=== PATIENT | female | born 1965 | race African-American/Black ===

== ENCOUNTER → 2016-06-11 | Outpatient (CLI) | payer SELFPAY ==
[~2016-06-11] MED LIST: AMITRIPTYLINE H50 MG PO; AMITRYPTYLINE PO; BUTALB-ACETAMI1 EACH PO; CELEXA20 MG PO; CITALOPRAM HBR40 MG PO; GINKGO BILOBA120 M1 PO; IMITREX25 MG PO; NEXIUM PO; PATIENT'S PHARMACY; PRILOSEC PO; VITAMIN D31000 UNIT PO; WELLBUTRIN SR150 M1 PO; WELLBUTRIN SR150 MG PO
== END | disposition home or self-care (01) ==
LOC: CBAR 15:10
DX: A04.8 Other specified bacterial intestinal infections (principal)
CPT/HCPCS: 36415; 86677

== ENCOUNTER → 2016-07-30 | Day surgery (SDC) | payer SELFPAY ==
--- NOTE | ~2016-07-30 | OR ---
Unit #: [id number] #: [id number] Patient: CHRISTIANO WEINBERG [id number] [address] [place], [place] [address] [id number] O MR#: [id number] NAME: CHRISTIANO WEINBERG ROOM: Date of Procedure: 07/30/2016 Admission Date: 07/30/2016 Surgeon: Dontrell Celaya III, M.D. : 1965 Attending Physician: Dontrell Celaya III, M.D. OPERATIVE REPORT PREOPERATIVE DIAGNOSIS Obesity. POSTOPERATIVE DIAGNOSIS Obesity. PROCEDURES PERFORMED Esophagogastroduodenoscopy and placement of intragastric Orbera balloon. ANESTHESIA MAC. SPECIMENS None. COMPLICATIONS None apparent. FINDINGS Small hiatal hernia. INDICATIONS FOR PROCEDURE This is a 51-year-old lady, who has been evaluated for intragastric Orbera balloon placement. She understands risks and benefits of the procedure, and wishes to proceed. DESCRIPTION OF PROCEDURE After consent was obtained, the patient was brought to the endoscopy suite and placed in the left lateral decubitus position. We titrated the above sedation and I passed an EGD scope easily into the esophagus under direct visualization. She had normal peristalsis. No evidence of any erosions or esophagitis and there was only a small hiatal hernia present. I evaluated the rest of the stomach, which showed no ulcerations or retained food or gastritis. The pylorus was patent and the first and second portions of the duodenum appeared normal. I then retroflexed the scope within the cardia and again just saw a small hiatal hernia. The scope was then straightened and withdrawn. I then lubricated the Orbera intragastric balloon. It was easily passed into the oropharynx and into the esophagus. I then followed it toward the stomach with the scope behind it. Once the balloon was placed within the upper portion of the stomach under direct visualization, I insufflated the balloon with 640 mL Unit #: [id number] #: [id number] Patient: CHRISTIANO WEINBERG of saline. I then detached the catheter from the balloon itself and the balloon was in good position. I suctioned out all the excess air from the stomach. The scope was then carefully withdrawn along with the catheter tubing. It should be noted that the serial number for the balloon was [id number]. The patient tolerated the procedure without any problems and returned to the recovery room in stable condition. Dictated by... Dontrell Celaya III, M.D. VCL/rhoda TD: 07/31/2016 03:04 JOB #: [id number] OPERATIVE REPORT Page 1 of 1 X Dontrell Celaya III, MD PROCEDURE OPERATIVE NOTE
== END | disposition home or self-care (01) ==
LOC: CSUR 08:57 → COPS 11:00
DX: E66.9 Obesity, unspecified (principal); K44.9 Diaphragmatic hernia without obstruction or gangrene; K21.9 Gastro-esophageal reflux disease without esophagitis; F32.9 Major depressive disorder, single episode, unspecified; I10 Essential (primary) hypertension; G43.909 Migraine, unspecified, not intractable, without status migrainosus; G47.30 Sleep apnea, unspecified; Z68.33 Body mass index [BMI] 33.0-33.9, adult; Z88.6 Allergy status to analgesic agent; Z90.710 Acquired absence of both cervix and uterus; Z90.49 Acquired absence of other specified parts of digestive tract; Z98.890 Other specified postprocedural states
CPT/HCPCS: J2250

== ENCOUNTER 2016-09-24 08:42 | Observation (INO) | payer OTHER ==
[~2016-09-24] VITALS: Ht 154.9 cm; Wt 69.4 kg
--- NOTE | ~2016-09-24 | CR7 ---
[facility] A Service of [facility] & [facility] RADIOLOGY TEXT RESULTS PATIENT: CHRISTIANO WEINBERG LOCATION: C2A 229-01 : [birth year] UNIT #: [id number] AGE: [address]: Dontrell Celaya III, MD SEX: F ORDER DR: [id number] [facility] [address] [facility]. [place], [place] [address] [id number] I MR#: [id number] Acc #: [id number] NAME: CHRISTIANO WEINBERG : 1965 SEX: F STUDY DATE/TIME: 09/24/2016 15:00 UNIT: [facility] ROOM: 229 STUDY DESCRIPTION: CR Abdomen Single AP View Attending Physician: Dontrell Celaya III, M.D. Ordering Physician: [facility] MEDICAL IMAGING REPORT This report is preliminary unless electronic signature is present EXAM Portable abdomen HISTORY NG tube placement and abdomen pain today. FINDINGS Portable radiograph of the abdomen, excluding the right lateral margin the abdomen, demonstrates NG tube tip in the right upper quadrant at the level of the distal stomach in the gastric antrum or duodenal bulb, 27 cm beyond the EG junction. The visualized bowel gas pattern is normal. Surgical clips in the right upper quadrant. Dictated by... Elijah Hope M.D. THIS IS AN ELECTRONICALLY VERIFIED REPORT Elijah Hope M.D. at 09/24/2016 11:46 PM DFL/pcl TD: 09/24/2016 20:53 JOB #: [id number] MEDICAL IMAGING REPORT Page 1 of 1 COPY
--- NOTE | ~2016-09-24 | CR2 ---
[facility] A Service of [facility] & [facility] RADIOLOGY TEXT RESULTS PATIENT: CHRISTIANO WEINBERG LOCATION: [facility] 229-01 : [birth year] UNIT #: [id number] AGE: [address]: Dontrell Celaya III, MD SEX: F ORDER DR: [id number] [facility] [address] [facility] [place], [place] [address] [id number] E MR#: [id number] Acc #: [id number] NAME: CHRISTIANO WEINBERG : 1965 SEX: F STUDY DATE/TIME: 09/24/2016 9:46 UNIT: [facility] ROOM: STUDY DESCRIPTION: CR Abdomen Acute Series Attending Physician: Dee Ann A.P.R.N. Ordering Physician: Ed Doc Jr Ding Primary Care Physician: No Primary Care Physician MEDICAL IMAGING REPORT This report is preliminary unless electronic signature is present EXAM Acute abdomen series, 3 views, 09/24/2016. HISTORY Nausea, vomiting and generalized abdominal pain for 1 week. FINDINGS Single frontal view of the chest taken at the time of the abdominal examination is within normal limits. AP, supine, and upright examination of the abdomen shows a normal gas and fecal pattern distribution throughout large and small bowel without distended loops in either area. There is no indication of extraluminal air, unusual visceromegaly, or soft tissue density mass. The renal definitions are fairly well demarcated and normal in shape and size. No abnormal intra-abdominal calcifications are present. IMPRESSION Normal acute abdomen series. Dictated by... Roland Johnston M.D. THIS IS AN ELECTRONICALLY VERIFIED REPORT Roland Johnston M.D. at 09/25/2016 7:27 AM IVANA/jazzy TD: 09/24/2016 13:27 JOB #: [id number] MEDICAL IMAGING REPORT Page 1 of 1 COPY
--- NOTE | ~2016-09-24 | CR7 ---
[facility] A Service of [facility] & [facility] RADIOLOGY TEXT RESULTS PATIENT: CHRISTIANO WEINBERG LOCATION: C2A 229-01 : [birth year] UNIT #: [id number] AGE: [address]: Dontrell Celaya III, MD SEX: F ORDER DR: [id number] [id number] [place], [place] [address] [id number] I MR#: [id number] Acc #: [id number] NAME: CHRISTIANO WEINBERG : 1965 SEX: F STUDY DATE/TIME: 09/25/2016 7:16 UNIT: [facility] ROOM: 229 STUDY DESCRIPTION: CR Abdomen Single AP View Attending Physician: Dontrell Celaya III, M.D. Ordering Physician: Dontrell Celaya III, M.D. Primary Care Physician: Primary Care Physician No MEDICAL IMAGING REPORT This report is preliminary unless electronic signature is present EXAM Single view abdomen INDICATIONS Recent gastric surgery. Gastric balloon placement. FINDINGS AP radiographs of the abdomen without comparison. There is a density projecting over the stomach consistent with the gastric alignment. Enteric tube has been removed. Bowel gas pattern is nonobstructive. There has been prior cholecystectomy. No acute osseous abnormalities. IMPRESSION Density projecting over the stomach consistent with a gastric balloon. Dictated by... Paul Leong M.D. THIS IS AN ELECTRONICALLY VERIFIED REPORT Paul Leong M.D. at 09/25/2016 2:54 PM ROCKY/cassandra TD: 09/25/2016 09:04 JOB #: [id number] MEDICAL IMAGING REPORT Page 1 of 1 COPY
[~2016-09-24 08:42] MED LIST changes: -AMITRIPTYLINE H50 MG PO; -BUTALB-ACETAMI1 EACH PO; -CITALOPRAM HBR40 MG PO; -IMITREX25 MG PO; -PATIENT'S PHARMACY; -PRILOSEC PO; -WELLBUTRIN SR150 M1 PO
[2016-09-24 09:49] LABS: BASOPHIL# 0.1 X10e3 (0-0.3); EOSINOPHIL# 0.1 X10e3 (0-0.7); EOSINOPHIL% 0.9 % (0.0-7.0); HEMATOCRIT 40.9 % (35.0-45.0); HEMOGLOBIN 13.9 gm/dL (12.0-16.0); LYMPHOCYTE# 2.5 X10e3 (1.0-3.5); LYMPHOCYTE% 33.5 % (17.0-45.0); MEAN CELL VOLUME 85.1 FL (83-96); MEAN CORPUSCULAR HEMOGLOBIN 28.9 PG (28-34); MEAN CORPUSCULAR HGB CONC 33.9 g/dL (30-36); MEAN PLATELET VOLUME 8.4 FL (6.5-11.5); MONOCYTE# 0.8 X10e3 (0-1.0); NEUTROPHIL# 3.9 X10e3 (1.5-7.1); NEUTROPHIL% 53.6 % (40-75); PLATELET COUNT 306 X10e3 (140-420); RED BLOOD COUNT 4.81 X10e (3.90-5.30); RED CELL DISTRIBUTION WIDTH 15.7 % (11.0-15.5); WHITE BLOOD COUNT 7.3 X10e3 (4.0-10.5)
[2016-09-24 09:50] LABS: DIFF IND NO
[2016-09-24 10:22] LABS: ALBUMIN SERUM 4.9 g/dL (3.5-5.0); BILIRUBIN, DIRECT 0.1 mg/dL (0.0-0.2); BILIRUBIN,INDIRECT 1.1 mg/dL (0.0-0.9); BILIRUBIN,TOTAL 1.2 mg/dL (0.2-2.0); BUN/CREATININE RATIO 17.5; CALCIUM SERUM 10.3 mg/dL (8.4-10.2); CREATININE SERUM 1.2 mg/dL (0.6-1.4); GLOM FILT RATE Estimated 59.8 mL/min (>60); PROTEIN TOTAL SERUM 8.8 g/dL (6.0-8.3)
[2016-09-24 10:24] LABS: POTASSIUM 2.8 mmol/L (3.5-5.1)
[2016-09-24 11:26] LABS: URINE SOURCE CLEAN CATCH
[2016-09-24 11:38] LABS: URINE APPEARANCE CLOUDY; URINE BILIRUBIN NEG (NEG); URINE BLOOD NEG (NEG); URINE COLOR YELLOW; URINE GLUCOSE NEG (NEG); URINE KETONE 3+ (NEG); URINE LEUKOCYTE ESTERASE TRACE (NEG); URINE NITRATE NEG (NEG); URINE PROTEIN TRACE (NEG); URINE SPECIFIC GRAVITY 1.025 (1.003-1.035)
[2016-09-24 11:42] LABS: CULTURE INDICATED? YES; URINE BACTERIA AUWI 4+ (NEGATIVE); URINE SQUAMOUS EPITHELIAL CELL MOD /[HPF]
[2016-09-24 12:09] LABS: URBCS1 AUWI 0-2 /[HPF] (0-2); URINE GRANULAR CAST 0-2 /[HPF]
[2016-09-24 12:10] LABS: URINE MUCUS PRESENT
[2016-09-24] MEDS ORDERED: AMITRIPTYLINE H50 MG PO (15:09)
[2016-09-24] MEDS ORDERED: BUTALB-ACETAMI1 EACH PO (15:09)
[2016-09-24] MEDS ORDERED: CITALOPRAM HBR40 MG PO (15:09)
[2016-09-24] MEDS ORDERED: PRILOSEC PO (15:09)
[2016-09-24] MEDS ORDERED: PATIENT'S PHARMACY (15:09)
[2016-09-24] MEDS ORDERED: IMITREX25 MG PO (15:10)
[2016-09-24] MEDS ORDERED: WELLBUTRIN SR150 M1 PO (15:10)
[2016-09-25 06:14] LABS: CALCIUM SERUM 8.7 mg/dL (8.4-10.2); CREATININE SERUM 0.8 mg/dL (0.6-1.4); GLOM FILT RATE Estimated 97.6 mL/min (>60)
== END 2016-09-25 10:33 | disposition home or self-care (01) | DRG 392 ==
LOC: CED 08:42 → CEDOF 14:45 → CED 15:11 → CEDOF 16:45 → C2A 17:17 → CEDOF 17:17 → C2A 09-25 10:33
PROVIDERS: Nurse Practitioner; Surgery
DX: R10.11 Right upper quadrant pain (principal); R11.2 Nausea with vomiting, unspecified; E87.6 Hypokalemia; Z79.899 Other long term (current) drug therapy; Z90.49 Acquired absence of other specified parts of digestive tract; Z90.710 Acquired absence of both cervix and uterus; Z98.890 Other specified postprocedural states
CPT/HCPCS: 36415; 74000; 74022; 80048; 80076; 81003; 83690; 85025; 87086; 96361; 96374; 96375; 96376; 99285; C9113; G0378; J2270; J2405

== ENCOUNTER → 2016-10-30 | Day surgery (SDC) | payer SELFPAY ==
[~2016-10-30] MED LIST changes: +AMITRIPTYLINE H50 MG PO; +BUTALB-ACETAMI1 EACH PO; +CITALOPRAM HBR40 MG PO; +IMITREX25 MG PO; +PATIENT'S PHARMACY; +PRILOSEC PO; +WELLBUTRIN SR150 M1 PO
--- NOTE | ~2016-10-30 | OR ---
Unit #: [id number] #: [id number] Patient: CHRISTIANO WEINBERG [id number] [address] [address] [id number] O MR#: [id number] NAME: CHRISTIANO WEINBERG ROOM: Date of Procedure: 10/30/2016 Admission Date: 10/30/2016 Surgeon: Dontrell Celaya III, M.D. : 1965 Attending Physician: Dontrell Celaya III, M.D. Primary Care Physician: Primary Care Physician No OPERATIVE REPORT PREOPERATIVE DIAGNOSES History of gastric balloon, history of obesity, and nausea and vomiting. POSTOPERATIVE DIAGNOSES History of gastric balloon, history of obesity, and nausea and vomiting. PROCEDURE PERFORMED Esophagogastroduodenoscopy with gastric balloon removal. ANESTHESIA General. SPECIMENS None. COMPLICATIONS None apparent. ESTIMATED BLOOD LOSS Minimal. INDICATIONS FOR PROCEDURE This is a 51-year-old lady, who has done extremely well after gastric balloon placement in terms of weight loss. However, she has had some pretty significant side effects of nausea, vomiting, and abdominal discomfort. She is here today for gastric balloon removal. DESCRIPTION OF PROCEDURE After consent was obtained, the patient was brought to the operating room and placed in the supine position. General anesthetic was administered. She was then placed in the left lateral decubitus position. I passed an EGD scope easily into the esophagus under direct visualization. The esophagus appeared normal. There was a little bit retained food in the stomach. The gastric balloon itself appeared normal. I was able to navigate the scope past the balloon and the pylorus was patent and the first and second portions of the duodenum appeared normal. I did not see any ulcers. It should be noted the balloon really did not appear to be out of position. It was maybe slightly lower than normal. It certainly was not wedged down in the antrum. Next, I pierced the balloon with a catheter needle. I removed the needle and suctioned out 640 mL from the balloon itself. Once the balloon was fully deflated, I used the grasper to securely grab hold of the balloon itself and it was retrieved through Unit #: [id number] #: [id number] Patient: CHRISTIANO WEINBERG the oropharynx after partially deflating the endotracheal tube balloon. This came out without any difficulty at all. She tolerated the procedure without any problems and returned to the recovery room in stable condition. Dictated by... Dontrell Celaya III, M.D. VCL/rohda TD: 10/31/2016 12:42 JOB #: [id number] OPERATIVE REPORT Page 1 of 1 X Dontrell Celaya III, MD PROCEDURE OPERATIVE NOTE
== END | disposition home or self-care (01) ==
LOC: CSUR 07:24
DX: R11.2 Nausea with vomiting, unspecified (principal); R10.9 Unspecified abdominal pain; K21.9 Gastro-esophageal reflux disease without esophagitis; G43.909 Migraine, unspecified, not intractable, without status migrainosus; G47.30 Sleep apnea, unspecified; Z79.899 Other long term (current) drug therapy; Z90.710 Acquired absence of both cervix and uterus; Z90.49 Acquired absence of other specified parts of digestive tract; Z98.890 Other specified postprocedural states; Z88.5 Allergy status to narcotic agent
CPT/HCPCS: J0330; J2250; J2405